=== PATIENT | female | born 1945 | race Caucasian/White ===

== ENCOUNTER 2017-04-10 04:45 | Day surgery (SDC) | payer OTHER ==
[~2017-04-10 04:45] MED LIST: ALLEGRA PO; AMB10 PO; C5; DURA25 TOP; L20 PO; LEVOTHYROXIN100 MCG PO; LEVOTHYROXIN50 MCG PO; LEVOTHYROXIN75 MCG PO; LOP25 PO; LORTAB10 PO; MULTIPLE VIT PO; NORCO1 TA1 PO; NORCO1 TAB PO; OXYCON10 PO; OXYCONTIN15 MG PO; PCET PO; PROZAC PO; RISP0.5 PO; RISP1 PO; ROXICODONE15 MG PO; SOMATAB PO; TOPXL100 PO; TOPXL50 PO; VITAMIN D1000 UNI1 PO; VITAMIN D31000 UNIT PO; VITC500 PO; XANAX2 MG PO; XODOL 10-300 T1 EACH PO; ZESTORETIC PO; ZOCOR20 PO
[2017-07-21] MEDS ORDERED: EFFEX75 PO (13:05)
== END 2017-04-10 18:45 | disposition home or self-care (01) ==
LOC: SDC 04:45
PROVIDERS: Orthopaedic Surgery Orthopaedic Surgery of the Spine
PROC: 3E0R3BZ Introduction of Anesthetic Agent into Spinal Canal, Percutaneous Approach (ICD-10-PCS; 2017-04-10)
PROC: B01BYZZ Fluoroscopy of Spinal Cord using Other Contrast (ICD-10-PCS; 2017-04-10)
PROC: 3E0R33Z Introduction of Anti-inflammatory into Spinal Canal, Percutaneous Approach (ICD-10-PCS; principal; 2017-04-10 07:15)
DX: M54.16 Radiculopathy, lumbar region (principal); M48.06 Spinal stenosis, lumbar region; Z95.0 Presence of cardiac pacemaker; Z79.899 Other long term (current) drug therapy; Z79.891 Long term (current) use of opiate analgesic; Z90.710 Acquired absence of both cervix and uterus; Z90.49 Acquired absence of other specified parts of digestive tract; Z96.653 Presence of artificial knee joint, bilateral; Z98.890 Other specified postprocedural states
CPT/HCPCS: J2250; J3010; Q9967